=== PATIENT | male | born 1935 | race Caucasian/White ===

== ENCOUNTER 2022-11-30 15:18 | Inpatient (IN) | payer MEDICARE, OTHER ==
[~2022-11-30] VITALS: Ht 193 cm; Wt 86.6 kg
[2022-11-30 15:57] LABS: BASOPHILS 0.2 % (0-2); EOSINOPHILS 0.2 % (0-6); HEMATOCRIT 42.9 % (35.0-50.0); LYMPHOCYTES 6.2 % (24-44); MCH 29.6 (27-36); MCHC 32.6 g/dl (30-36); MCV 90.8 fl (81-99); MONOCYTES 6.9 % (0-12); NEUTROPHILS 86.5 % (39-80); PLATELET COUNT 369 K/uL (140-440); RBC 4.72 M/ul (4.3-5.7); RDW 13.7 (10.5-15.0)
[2022-11-30] MEDS ORDERED: METOPROLOL TART25 MG PO (16:03)
[2022-11-30] MEDS ORDERED: ST. JOSEPH ASPI81 M1 PO (16:04)
[2022-11-30] MEDS ORDERED: CRESTOR20 MG PO (16:04)
[2022-11-30] MEDS ORDERED: ELIQUIS2.5 MG PO (16:05)
[2022-11-30 16:14] LABS: BILIRUBIN, URINE POSITIVE (negative); BLOOD/HGB, URINE NEGATIVE (Negative); KETONE, URINE TRACE (Negative); LEUK ESTERASE, URINE NEGATIVE (negative); NITRITE, URINE NEGATIVE (negative)
[2022-11-30 16:15] LABS: ALBUMIN 3.2 g/dL (3.4-5.0); ALBUMIN/GLOBULIN RATIO 0.73 (1.1-2.4); ANION GAP 14.8 (7-21); BILIRUBIN, TOTAL 1.6 ng/dL (0.2-1.0); BUN/CREATININE RATIO 24.29 (6.0-28.6); CALCIUM 9.5 mg/dL (8.5-10.1); CREATININE, SERUM 1.07 mg/dL (0.70-1.30); POTASSIUM 3.8 mmol/L (3.5-5.1); PROTEIN, TOTAL 7.6 g/dL (6.4-8.2)
[2022-11-30 16:16] LABS: LACTIC ACID, BLOOD 1.4 mmol/L (0.4-2.0)
[2022-11-30 16:23] LABS: BACTERIA, URINE RARE /hpf (negative); CASTS, URINE NONE SEEN \\lpf; COLLECTION TYPE, URINE CLEAN CATCH; CRYSTALS, URINE NONE SEEN (0-1+); RED BLOOD CELLS, URINE 0-1 /hpf (0-5)
[2022-11-30 16:24] LABS: REFLEX CULTURE, URINE No (No)
[2022-11-30 16:25] LABS: EPITHELIAL CELLS, URINE 0 /lpf (0-1+)
[2022-11-30 19:27] VITALS: BP 136/107
[2022-11-30 20:00] VITALS: BP 112/80
--- NOTE | 2022-11-30 20:59 | EKG ---
[facility] [address] [facility] [place] [address] Signed Atrial fibrillation with rapid ventricular response with premature ventricular or aberrantly conducted complexes Left axis deviation Incomplete right bundle branch block Minimal voltage criteria for LVH, may be normal variant ( [place] product ) Nonspecific T wave abnormality Abnormal ECG No previous ECGs available Confirmed by Acosta Canales MD () on 11/30/2022 8:59:19 PM Electronically Signed By: ACOSTA CANALES MD 11/30/222058 PATIENT NAME: SHIN ALLISON Electrocardiogram DATE OF : 39 PHYSICIAN: ACOSTA CANALES MD REPORT #: [id number] REPORT IS CONFIDENTIAL AND NOT TO BE RELEASED WITHOUT AUTHORIZATION
[2022-11-30 21:00] VITALS: BP 127/81
[2022-11-30 22:00] VITALS: BP 119/69
[2022-11-30 23:00] VITALS: BP 115/43
[2022-12-01] VITALS (25 sets, daily range): BP systolic 83–139; BP diastolic 47–92
[2022-12-01 05:26] LABS: BASOPHILS 0.4 % (0-2); EOSINOPHILS 0.3 % (0-6); HEMATOCRIT 32.9 % (35.0-50.0); HEMOGLOBIN 11.2 g/dL (12.0-18.0); LYMPHOCYTES 9.2 % (24-44); MCH 30.5 (27-36); MCV 89.5 fl (81-99); MONOCYTES 10.5 % (0-12); NEUTROPHILS 79.6 % (39-80); PLATELET COUNT 246 K/uL (140-440); RBC 3.68 M/ul (4.3-5.7); RDW 13.6 (10.5-15.0)
[2022-12-01 05:29] LABS: INR 1.31 (0.80-1.30); PROTIME 15.8 Sec (11.2-14.2)
[2022-12-01 05:36] LABS: ALBUMIN 2.3 g/dL (3.4-5.0); ALBUMIN/GLOBULIN RATIO 0.68 (1.1-2.4); ANION GAP 13.5 (7-21); BUN/CREATININE RATIO 20.65 (6.0-28.6); CALCIUM 8.7 mg/dL (8.5-10.1); CREATININE, SERUM 0.92 mg/dL (0.70-1.30); MAGNESIUM 1.8 mg/dL (1.8-2.4); PHOSPHORUS, INORGANIC 2.9 mg/dL (2.5-4.9); POTASSIUM 3.5 mmol/L (3.5-5.1); PROTEIN, TOTAL 5.7 g/dL (6.4-8.2)
[2022-12-01 16:24] LABS: EOSINOPHILS 0.6 % (0-6)
[2022-12-01 16:29] LABS: BASOPHILS 0.4 % (0-2); HEMATOCRIT 34.8 % (35.0-50.0); HEMOGLOBIN 11.5 g/dL (12.0-18.0); LYMPHOCYTES 9.9 % (24-44); MCH 30.1 (27-36); MCHC 33.2 g/dl (30-36); MCV 90.8 fl (81-99); MONOCYTES 13.4 % (0-12); NEUTROPHILS 75.7 % (39-80); PLATELET COUNT 241 K/uL (140-440); RBC 3.83 M/ul (4.3-5.7); RDW 13.3 (10.5-15.0)
[2022-12-02] VITALS (25 sets, daily range): BP systolic 95–155; BP diastolic 54–108
[2022-12-02 02:32] LABS: BASOPHILS 0.4 % (0-2); EOSINOPHILS 0.5 % (0-6); HEMATOCRIT 32.5 % (35.0-50.0); HEMOGLOBIN 10.9 g/dL (12.0-18.0); LYMPHOCYTES 9.4 % (24-44); MCH 30.3 (27-36); MCHC 33.6 g/dl (30-36); MCV 90.1 fl (81-99); MONOCYTES 13.7 % (0-12); PLATELET COUNT 207 K/uL (140-440); RBC 3.61 M/ul (4.3-5.7); RDW 13.2 (10.5-15.0)
[2022-12-02 02:41] LABS: ANION GAP 12.9 (7-21); CALCIUM 8.5 mg/dL (8.5-10.1); MAGNESIUM 1.7 mg/dL (1.8-2.4); POTASSIUM 3.9 mmol/L (3.5-5.1)
[2022-12-02 08:52] LABS: INFLUENZA B NAA NEGATIVE (NEGATIVE); RESPIRATORY SYNCYTIAL VIR NAA NEGATIVE (NEGATIVE)
--- NOTE | 2022-12-02 15:49 | CONS ---
[facility] [address] [place], [place] [address] Signed DATE OF CONSULTATION: 11/30/2022 TIME: 11:20 p.m. CONSULTING PHYSICIAN: Harlan Argueta MD. REQUESTING PHYSICIAN: Acosta Mckeon MD. PROBLEM: Acute calculous cholecystitis, recent ERCP, papillotomy, and extraction of common duct stones ([place], [place]). HISTORY: This 87-year-old white man lives in [place] and was traveling to [place]. 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 He was traveling with his to [place] for business purposes when he became quite uncomfortable and felt sick and presented to the emergency room. Approximately 10 days go, he underwent ERCP for common bile duct stones and said to have had 3 stones removed endoscopically after papillotomy. He was advised to have a cholecystectomy "in a couple of months" he says. No firm plans were set for that, however. The patient has had episodes of upper abdominal pain few days ago related to food. His pain upon presentation was in the lower abdomen with fair amount of belching. He additionally had diarrhea earlier in the morning and took Lomotil. His presentation in the emergency room showed him to have atrial fibrillation with rapid ventricular response. 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 He is chronically anticoagulated with Eliquis. Notably, the patient has not had rapid ventricular response, atrial fibrillation prior to this episode. His medications at presentation include metoprolol, aspirin, rosuvastatin, and apixaban (Eliquis). The patient denies any prior abdominal operation, only the median sternotomy for Electronically Signed By: HARLAN ARGUETA MD 12/02/22 1549 PATIENT NAME: SHIN ALLISON CONSULTATION DATE OF : 39 REPORT #: [id number] PHYSICIAN: HARLAN ARGUETA MD PCP: OTHER PCP REPORT IS CONFIDENTIAL AND NOT TO BE RELEASED WITHOUT AUTHORIZATION [facility] [address] [place], [place] [address] Signed coronary artery bypass grafting. His evaluation in the emergency room included a chest x-ray showing no acute cardiopulmonary process. He had a heart rate into the 150s or 60s at presentation and was given diltiazem and a diltiazem drip, which has controlled his heart rate to about 110. I was called regarding the patient and recommended a CT scan be obtained to assess if there are special findings of ERCP-related complications such as abscess or free air. The CT scan showed a gallbladder with marked gallbladder wall thickening and pericholecystic fluid and no sign of obstructing stone or mass. There is intrahepatic and extrahepatic ductal dilatation measuring up to 12 mm in the common bile duct without definite obstructing stone or mass. The patient was directly admitted to the intensive care unit for further management of his atrial fibrillation, RVR, possible cholecystitis, and possible cholangitis by Dr. Mckeon. The patient had been prescribed Lopressor in the emergency room without much benefit as well as diltiazem drip was beneficial. Blood cultures were obtained and he was started on Zosyn antibiotic. REVIEW OF SYSTEMS: He currently denies much abdominal pain. He has no shortness of breath and no chest pain. PHYSICAL EXAMINATION: GENERAL: He is a tall, thin, white man, who looks to be in no distress at this time. VITAL SIGNS: He is in the intensive care unit under continuous monitoring with a heart rate of 106 with an atrial fibrillation-type rhythm. O2 saturation is 98%. Blood pressure is 117/74. HEENT: Mucous membranes are slightly dry. Trachea is midline. CHEST: Shows normal respiratory excursion without wheeze or rhonchi. HEART: Irregular and monitor consistent with atrial fibrillation. ABDOMEN: Shows no sign of abdominal distention. There is only minimal tenderness in the epigastric and right subcostal area. There is no palpable mass. He has no ascites. A well-healed median sternotomy incision is noted in the anterior chest. EXTREMITIES: Lower extremities show no clubbing, cyanosis, or edema. LABORATORY DATA: Lab studies at presentation showed normal electrolytes. Creatinine 1.07, bilirubin is 1.6. Liver enzymes normal. Alkaline phosphatase elevated at 289. Lipase normal at 115. White count was 14.6, hematocrit 42.9, platelets 369,000. Urinalysis showed 7-11 white cells per high-power field. IMAGING DATA: Electronically Signed By: HARLAN ARGUETA MD 12/02/22 1549 PATIENT NAME: SHIN ALLISON CONSULTATION DATE OF : 39 REPORT #: [id number] PHYSICIAN: HARLAN ARGUETA MD PCP: OTHER PCP REPORT IS CONFIDENTIAL AND NOT TO BE RELEASED WITHOUT AUTHORIZATION [facility] [address] [place] [id number] Signed Chest x-ray was normal. Review of the interpretation by the radiologist of the CT read as previously noted. My review of the CT scan shows intrahepatic ductal dilatation and marked edema and inflammation around the gallbladder itself. There may be stones within the gallbladder, but they do not appear to be calcified. ASSESSMENT: The patient has acute calculous cholecystitis and previously had common bile duct stones requiring ERCP, papillotomy, and stone extraction. Retention of the gallstones within the gallbladder allowed for recurrent trouble. A cholecystectomy was intended and definitely should be undertaken at the soonest possible time given the findings. Unfortunately, the patient is on Eliquis. Abstinence of Eliquis for at least 48 hours is required for safe operation and avoidance of potentially dangerous bleeding. No specific reversal agent is available for Eliquis and I think he is safe to allow for natural resolution of the problem. For component PCC is a consideration, but not entirely reliable for reversal of the anticoagulant effect. His atrial fibrillation with rapid ventricular response may be secondary response to the inflammatory change of the gallbladder now present. Operation would generally consist of laparoscopic cholecystectomy with cholangiogram and possible transcystic duct laparoscopic common bile duct exploration. He has already had an ERCP papillotomy and extraction of stones. If additional pass of stones has occurred since his papillotomy 10 days ago, passage of the stones may be slightly problematic on the basis of inflammation and edema of the ampulla. One would hope that open common duct exploration would not be necessary, but it is a possibility. Considering the dilated bile duct noted on the CT scan, it is probable that he has passed a stone within the common duct, which may or may not pass spontaneously. In the meantime, awaiting for operation itself. In the meantime, IV antibiotics, parenteral pain medication, limited oral intake (clear liquids) for comfort would be appropriate with a wait time of 2 days before proceeding to operative intervention of cholecystectomy and other indicated procedures. Discussed all this with the patient, he understands. MD SALVADOR Soto/KARI /[id number] Electronically Signed By: HARLAN ARGUETA MD 12/02/22 1549 PATIENT NAME: SHIN ALLISON CONSULTATION DATE OF : 39 REPORT #: [id number] PHYSICIAN: HARLAN ARGUETA MD PCP: OTHER PCP REPORT IS CONFIDENTIAL AND NOT TO BE RELEASED WITHOUT AUTHORIZATION [address] [place], [place] [address] Signed cc: ACOSTA MCKEON MD Copies: ~ Electronically Signed By: HARLAN ARGUETA MD 12/02/22 1549 PATIENT NAME: SHIN ALLISON CONSULTATION DATE OF : 39 REPORT #: [id number] PHYSICIAN: HARLAN ARGUETA MD PCP: OTHER PCP REPORT IS CONFIDENTIAL AND NOT TO BE RELEASED WITHOUT AUTHORIZATION
[2022-12-02 19:29] LABS: MAGNESIUM 2.2 mg/dL (1.8-2.4); POTASSIUM 3.9 mmol/L (3.5-5.1)
[2022-12-03] VITALS (9 sets, daily range): BP systolic 102–142; BP diastolic 63–99
[2022-12-03 07:23] LABS: BASOPHILS 0.2 % (0-2); EOSINOPHILS 0.1 % (0-6); HEMOGLOBIN 12.3 g/dL (12.0-18.0); LYMPHOCYTES 13.3 % (24-44); MCH 29.8 (27-36); MCHC 33.3 g/dl (30-36); MCV 89.4 fl (81-99); MONOCYTES 9.4 % (0-12); PLATELET COUNT 239 K/uL (140-440); RBC 4.14 M/ul (4.3-5.7); RDW 13.4 (10.5-15.0)
[2022-12-03 07:39] LABS: ALBUMIN 2.2 g/dL (3.4-5.0); ALBUMIN/GLOBULIN RATIO 0.59 (1.1-2.4); ANION GAP 13.9 (7-21); BILIRUBIN, TOTAL 0.7 ng/dL (0.2-1.0); BUN/CREATININE RATIO 19.19 (6.0-28.6); CREATININE, SERUM 0.99 mg/dL (0.70-1.30); POTASSIUM 3.9 mmol/L (3.5-5.1); PROTEIN, TOTAL 5.9 g/dL (6.4-8.2)
[2022-12-03] MEDS ORDERED: AMIODARONE HCL200 MG PO (08:08)
[2022-12-03] MEDS ORDERED: METOPROLOL TART50 MG PO (08:09)
[2022-12-03] MEDS ORDERED: DEXAMETHASONE4 MG PO (08:10)
[2022-12-03] MEDS ORDERED: PAXLOVID 300-11 EACH PO (08:11)
[2022-12-03] MEDS ORDERED: AMOXICILLIN875 MG PO (08:25)
== END 2022-12-03 11:15 | disposition home or self-care (01) | DRG 862 ==
LOC: ED 15:18 → EDBD 18:23 → CCU 18:23
PROVIDERS: Emergency Medicine; Internal Medicine; ADMIT Family Medicine; ATTEND Family Medicine
PROC: 3E03329 Introduction of Other Anti-infective into Peripheral Vein, Percutaneous Approach (ICD-10-PCS; 2022-11-30)
PROC: 3E0333Z Introduction of Anti-inflammatory into Peripheral Vein, Percutaneous Approach (ICD-10-PCS; principal; 2022-12-02)
PROC: 8E0ZXY6 Isolation (ICD-10-PCS; 2022-12-02)
PROC: XW033E5 Introduction of Remdesivir Anti-infective into Peripheral Vein, Percutaneous Approach, New Technology Group 5 (ICD-10-PCS; 2022-12-02)
DX: T81.40XA Infection following a procedure, unspecified, initial encounter (principal); A41.9 Sepsis, unspecified organism; U07.1 COVID-19; K83.09 Other cholangitis; K92.1 Melena; T81.44XA Sepsis following a procedure, initial encounter; K81.9 Cholecystitis, unspecified; I48.91 Unspecified atrial fibrillation; I10 Essential (primary) hypertension; R74.8 Abnormal levels of other serum enzymes; K83.8 Other specified diseases of biliary tract; E78.5 Hyperlipidemia, unspecified; R19.7 Diarrhea, unspecified; Z79.01 Long term (current) use of anticoagulants; Z79.899 Other long term (current) drug therapy; Z95.5 Presence of coronary angioplasty implant and graft; Z79.82 Long term (current) use of aspirin; Z95.1 Presence of aortocoronary bypass graft; Z88.1 Allergy status to other antibiotic agents
CPT/HCPCS: 36415; 51701; 71045; 74177; 80048; 80053; 81001; 83605; 83690; 83735; 84100; 84132; 84443; 85025; 85610; 85730; 87040; 87502; 93005; 93010; 99285-25; A9270; C9113; C9803; J0248; J0282; J1100; J2543; J3475; J3490; J7050; J7121; Q9967; U0002